=== PATIENT | female | born 1950 | race Caucasian/White ===

== ENCOUNTER → 2019-10-30 | Day surgery (SDC) | payer MEDICARE, BC ==
[~2019-10-30] MED LIST: Bupivacaine 0.5%/EPINEPHrine 1:200,000 10 ML SDV ONE; Dexamethasone 4 MG/ML SDV IV ONE; Ketorolac 30 MG/ML SDV IVPUSH ONE; Lactated Ringers 1,000 ML IV SCH; Midazolam 1 MG/ML 2 ML SDV IV ONE; Morphine 4 MG/ML VIAL IV ONE; Propofol 200 MG/20 ML SDV IV ONE; fentaNYL 100 MCG/2 ML SDV IV ONE
--- NOTE | 2019-10-30 10:53 | OR ---
DATE OF OPERATION: 10/30/2019 PREOPERATIVE DIAGNOSIS: LEFT CARPAL TUNNEL SYNDROME AND RIGHT WRIST GANGLION CYST. POSTOPERATIVE DIAGNOSIS: LEFT CARPAL TUNNEL SYNDROME AND RIGHT WRIST GANGLION CYST. SURGEON: Toan Hickman MD PROCEDURE: RELEASE OF LEFT CARPAL TUNNEL SYNDROME AND EXCISION OF GANGLION CYST OF THE RIGHT WRIST. INDICATIONS: This 69-year-old female has EMG positive entrapment of the median nerve in the left wrist. She has typical symptoms of numbness in the hand. She also has by physical examination a cyst on the dorsal surface of the wrist around the navicular space. DESCRIPTION OF PROCEDURE: After adequate preparation, a longitudinal incision was made over the left wrist and carried down into the hand. This was taken down to the transverse carpal ligament, which was easily seen and then incised. This was freed up from the median nerve and the transverse carpal ligament was completely excised from the proximal to the distal area. Hemostasis was easily controlled. The wound was closed using interrupted 2-0 nylon sutures. The right hand was then prepped and draped on the dorsal surface of the wrist. Incision was made over the ganglion cyst and this was dissected free from the underlying structures. This was able to be then completely taken out. I actually did not find an opening into the joint space, but the cyst itself was excised. The wound was closed using interrupted 5-0 Vicryl sutures for the deeper layer and a running 4-0 Vicryl for the skin. BPB/EUGENIOL /[id number]
[2019-10-30 13:25] VITALS: BP 136/63; PULSE 87
== END ==
LOC: CC.SDS 07:29
PROVIDERS: ATTEND Surgery
DX: G56.02 Carpal tunnel syndrome, left upper limb (principal); M67.431 Ganglion, right wrist; M19.90 Unspecified osteoarthritis, unspecified site; M81.0 Age-related osteoporosis without current pathological fracture; I10 Essential (primary) hypertension; F32.9 Major depressive disorder, single episode, unspecified; E78.5 Hyperlipidemia, unspecified; E03.9 Hypothyroidism, unspecified; E78.00 Pure hypercholesterolemia, unspecified; F17.210 Nicotine dependence, cigarettes, uncomplicated; Z79.82 Long term (current) use of aspirin; Z79.899 Other long term (current) drug therapy; Z98.890 Other specified postprocedural states
CPT/HCPCS: 25111; 64721; J1100; J1885; J2250; J2270; J2704; J3010; J7120; 01810; 88304

== ENCOUNTER 2021-11-27 10:46 | Emergency (ER) | payer MEDICARE, BC ==
[2021-11-27 11:00] VITALS: BP 129/61; PULSE 90
[2021-11-27 11:50] LABS: CHLORIDE,CL 101 mEq/L (98-106); SODIUM,NA 137 mEq/L (136-145)
[2021-11-27] MEDS ORDERED: Sodium Chloride 0.9% 10 ML Syringe FLUSH PRN (12:10)
== END 2021-11-27 14:08 | disposition home or self-care (01) ==
LOC: CC.ED 10:46
DX: R55 Syncope and collapse (principal); D64.9 Anemia, unspecified; K92.2 Gastrointestinal hemorrhage, unspecified; R79.89 Other specified abnormal findings of blood chemistry; F17.210 Nicotine dependence, cigarettes, uncomplicated; I10 Essential (primary) hypertension; I25.10 Atherosclerotic heart disease of native coronary artery without angina pectoris; Z79.899 Other long term (current) drug therapy; Z20.822 Contact with and (suspected) exposure to COVID-19
CPT/HCPCS: 36415; 70450; 71046; 71275; 80053; 81003; 84443; 84484; 85025; 85379; 87804; 93005; 99284; U0002

== ENCOUNTER → 2021-12-01 | Day surgery (SDC) | payer MEDICARE, BC ==
[~2021-12-01] MED LIST changes: -Bupivacaine 0.5%/EPINEPHrine 1:200,000 10 ML SDV ONE; -Dexamethasone 4 MG/ML SDV IV ONE; +Ketamine 200 MG/20 ML MDV ONE; -Ketorolac 30 MG/ML SDV IVPUSH ONE; -Lactated Ringers 1,000 ML IV SCH; +Lidocaine 2% 5 ML SDV ONE; -Midazolam 1 MG/ML 2 ML SDV IV ONE; -Morphine 4 MG/ML VIAL IV ONE; -Propofol 200 MG/20 ML SDV IV ONE; +Propofol 200 MG/20 ML SDV ONE; -fentaNYL 100 MCG/2 ML SDV IV ONE; +fentaNYL 100 MCG/2 ML SDV ONE
[2021-12-01] MEDS: Lactated Ringers 1,000 ML IV SCH (08:50)
[2021-12-01 11:27] VITALS: BP 115/50; PULSE 79
== END ==
LOC: CC.SDS 08:09
PROVIDERS: ATTEND Surgery
DX: D64.9 Anemia, unspecified (principal); K92.2 Gastrointestinal hemorrhage, unspecified; R55 Syncope and collapse; R79.89 Other specified abnormal findings of blood chemistry; I25.10 Atherosclerotic heart disease of native coronary artery without angina pectoris; E78.00 Pure hypercholesterolemia, unspecified; I10 Essential (primary) hypertension; E03.9 Hypothyroidism, unspecified; F17.210 Nicotine dependence, cigarettes, uncomplicated; Z79.899 Other long term (current) drug therapy; Z79.82 Long term (current) use of aspirin; Z79.890 Hormone replacement therapy; Z98.890 Other specified postprocedural states
CPT/HCPCS: 00813; 36415; 43235; 45378; 85025; J2704; J3010; J7120

== ENCOUNTER 2024-05-18 08:50 | Emergency (ER) | payer MEDICARE, BC ==
[2024-05-18 09:14] VITALS: BP 145/71; PULSE 85
[2024-05-18 09:31] LABS: BASOPHILS ABSOLUTE AUTO 0.03 10^3/uL (0.00-0.50); BASOPHILS PERCENT AUTO 0.4 % (0-1); EOSINOPHILS ABSOLUTE AUTO 0.04 10^3/uL (0.00-1.50); EOSINOPHILS PERCENT AUTO 0.5 % (0-6); HEMATOCRIT 36.6 % (37.0-47.0); HEMOGLOBIN 11.9 g/dL (12.0-16.0); IMMATURE GRAN ABSOLUTE AUTO 0.02 10^3/uL (0.00-0.49); IMMATURE GRAN PERCENT AUTO 0.2 % (0.0-4.9); LYMPHOCYTES PERCENT AUTO 18.9 % (24-44); MEAN CORPUSCULAR HEMOGLOBIN 27.9 pg (27.0-32.0); MEAN CORPUSCULAR HGB CONC 32.5 g/dL (32.0-36.0); MEAN CORPUSCULAR VOLUME 85.7 fL (83.0-97.0); MONOCYTES ABSOLUTE AUTO 1.03 10^3/uL (0.00-1.50); MONOCYTES PERCENT AUTO 12.2 % (0-10); NEUTROPHILS ABSOLUTE AUTO 5.73 x10^3/uL (1.80-8.00); NEUTROPHILS PERCENT AUTO 67.8 % (41-71); PLATELET COUNT,PLT 303 10^3/uL (150-400); RED BLOOD CELL COUNT 4.27 x10^6/uL (4.00-5.50); WHITE BLOOD CELL COUNT,WBC 8.5 10^3/uL (4.0-11.0)
[2024-05-18 09:45] LABS: ALANINE AMINOTRANSFERASE,ALT 15 U/L (12-78); ALBUMIN 3.9 g/dL (3.4-5.0); ALKALINE PHOSPHATASE 117 U/L (46-116); ASPARTATE AMNIOTRANSFERASE,AST 17 U/L (15-37); BILIRUBIN TOTAL 0.4 mg/dL (0.0-1.0); BLOOD UREA NITROGEN,BUN 17 mg/dL (7-18); CALCIUM 9.1 mg/dL (8.4-10.1); CARBON DIOXIDE,CO2 24 mmol/L (21-32); CHLORIDE,CL 101 mEq/L (98-106); CREATININE 0.7 mg/dL (0.6-1.0); EST CRCL DRUG DOSING (CG) 59.21 mL/min; ESTIMATED GFR 91 mL/min (>=60); GLUCOSE RANDOM 113 mg/dL (75-99); POTASSIUM,K 4.5 mEq/L (3.5-5.0); SODIUM,NA 136 mEq/L (136-145)
[2024-05-18 09:46] LABS: MAGNESIUM 1.8 mg/dL (1.8-2.4)
[2024-05-18] MEDS: Aspirin 81 MG Tab.Chew PO ONE (09:52)
== END 2024-05-18 13:00 | disposition home or self-care (01) ==
LOC: CC.ED 08:50
DX: R07.2 Precordial pain (principal); F17.210 Nicotine dependence, cigarettes, uncomplicated; I25.10 Atherosclerotic heart disease of native coronary artery without angina pectoris; E78.00 Pure hypercholesterolemia, unspecified; I10 Essential (primary) hypertension; E03.9 Hypothyroidism, unspecified; Z79.82 Long term (current) use of aspirin; Z79.899 Other long term (current) drug therapy; Z95.1 Presence of aortocoronary bypass graft
CPT/HCPCS: 36415; 71046; 80053; 83690; 83735; 84484; 85025; 85730; 93005; 93010; 99284; 99285; A9270-GY

== ENCOUNTER 2025-04-11 12:57 | Emergency (ER) | payer MEDICARE, BC ==
[2025-04-11] MEDS: Atropine 0.1 MG/ML 10 ML Syringe IVPUSH ONE (13:01)
[2025-04-11] MEDS: Amiodarone 150 MG/3 ML SDV IVPUSH ONE ×2 (13:11→13:16)
[2025-04-11] MEDS: Atropine 0.4 MG/ML SDV IVPUSH ONE (18:01)
[2025-04-11] MEDS: DOPamine/Dextrose 5%-Water 400 MG/250 ML BAG ONE (18:01)
== END 2025-04-11 13:21 | disposition expired ==
LOC: CC.ED 12:57
DX: I46.9 Cardiac arrest, cause unspecified (principal); I10 Essential (primary) hypertension; I25.10 Atherosclerotic heart disease of native coronary artery without angina pectoris; E03.9 Hypothyroidism, unspecified; E78.00 Pure hypercholesterolemia, unspecified; Z90.710 Acquired absence of both cervix and uterus; Z79.899 Other long term (current) drug therapy; Z79.890 Hormone replacement therapy; Z79.82 Long term (current) use of aspirin; Z79.02 Long term (current) use of antithrombotics/antiplatelets
CPT/HCPCS: 31500; 92950; 96374; 96375; 99284; 99285; J0171; J0282; J0461